=== PATIENT | female | born 1985 | race Two or more races ===

== ENCOUNTER 2023-12-02 13:45 | Outpatient (CLI) | payer OTHER | END 2023-12-02 13:46 | disposition home or self-care (01) | LOC: NUCLEAR 13:45 | PROVIDERS: ATTEND Internal Medicine Sports Medicine | DX: C73 Malignant neoplasm of thyroid gland (principal); E89.0 Postprocedural hypothyroidism ==

== ENCOUNTER 2023-12-06 10:29 | Outpatient (CLI) | payer OTHER | END 2023-12-06 10:31 | disposition home or self-care (01) | LOC: NUCLEAR 10:29 | PROVIDERS: ATTEND Internal Medicine Sports Medicine | DX: C73 Malignant neoplasm of thyroid gland (principal) ==

== ENCOUNTER 2024-12-29 13:14 | Outpatient (CLI) | payer OTHER | END 2024-12-29 13:15 | disposition home or self-care (01) | LOC: NUCLEAR 13:14 | PROVIDERS: ATTEND Internal Medicine Sports Medicine | DX: C73 Malignant neoplasm of thyroid gland (principal) ==